=== PATIENT | male | born 1930 | race Caucasian/White ===

== ENCOUNTER 2017-09-29 11:40 | Emergency (ER) | payer MEDICARE, OTHER ==
[~2017-09-29] VITALS: Ht 175.3 cm; Wt 73.0 kg
[~2017-09-29 11:40] MED LIST: COUM2TAB PO; GLUC500C56 PO; HYDR10TA16 PO; IRON18TA PO; PROP40TA27 PO; TAB-TAB PO
[2017-09-29 11:46] VITALS: BP 162/72; PULSE 72; RESP 16; TEMP 98.2; O2SAT 96
[2017-09-29] MEDS ORDERED: SIMV10TA PO (11:54)
[2017-09-29] MEDS ORDERED: HTN MED (11:54)
[2017-09-29] MEDS ORDERED: AMOX500C PO (12:14)
--- NOTE | 2017-09-29 12:15 | PD ---
HPI Chief Complaint: Cold / Flu Symptoms Time Seen by Provider: 11:52 Travel History International Travel<30 days: No Contact w/Intl Traveler<30days: No Traveled to known affect area: No History of Present Illness HPI This 86-year-old male says he been sick for the past week. He's been coughing up thick yellow phlegm. He has not been short of breath. He uses a nebulizer with some response. He does not smoke. He stopped smoking 45 years ago and has not been diagnosed with COPD. He has no history of heart disease. He had a chest x-ray done last Friday and was told it was normal. PFSH Past Medical History Arthritis: Yes Blood Disorders: No Cancer: Yes (hx of skin cancers) High Cholesterol: Yes Endocrine: No Genitourinary: No Hypertension: Yes Immune Disorder: No Neurologic: No Psychiatric: No Reproductive: Yes (hx of prostate problems) Respiratory: No Past Surgical History Abdominal Surgery: Yes (sander inquinal hernia repair) Eye Surgery: Yes (sander cataract sx) Genitourinary Surgery: Yes (turp) Social History Alcohol Use: Yes (daily 1 beer and 2 mixed drinks) Tobacco Use: No Substance Use: No Allergies-Medications (Allergen,Severity, Reaction): Coded Allergies: No Known Allergies (Verified Adverse Reaction, Unknown, 09/29/17) Reported Meds & Prescriptions Reported Meds & Active Scripts Active Reported [Htn Med] Simvastatin 10 Mg Tab Unknown Dose PO DAILY Review of Systems General / Constitutional: No: Fever, Chills Eyes: No: Diploplia, Blurred Vision HENT: No: Headaches Cardiovascular: No: Chest Pain or Discomfort Respiratory: Positive: Cough, No: Shortness of Breath Gastrointestinal: No: Nausea, Vomiting Genitourinary: No: Urgency, Frequency Neurologic: No: Weakness Endocrine: No: Heat Intolerance, Cold Intolerance Hematologic/Lymphatic: No: Easy Bruising Physical Exam Narrative GENERAL: Well-developed male. His younger than his stated age SKIN: Focused skin assessment warm/dry. HEAD: Atraumatic. Normocephalic. EYES: Pupils equal and round. No scleral icterus. No injection or drainage. ENT: No nasal bleeding or discharge. Mucous membranes pink and moist. NECK: Trachea midline. No JVD. CARDIOVASCULAR: Regular rate and rhythm. No murmur appreciated. RESPIRATORY: No accessory muscle use. Clear to auscultation. Occasional rhonchi GASTROINTESTINAL: Abdomen soft, non-tender, nondistended. Hepatic and splenic margins not palpable. MUSCULOSKELETAL: No obvious deformities. No clubbing. No cyanosis. No edema. NEUROLOGICAL: Awake and alert. No obvious cranial nerve deficits. Motor grossly within normal limits. Normal speech. PSYCHIATRIC: Appropriate mood and affect; insight and judgment normal. Data Data Last Documented VS Vital Signs Date Time Temp Pulse Resp B/P (MAP) Pulse Ox O2 Delivery O2 Flow Rate FiO2 09/29/17 11:46 98.2 72 16 162/72 (102) 96 MDM Medical Decision Making Medical Screen Exam Complete: Yes Emergency Medical Condition: Yes Medical Record Reviewed: Yes Differential Diagnosis Differential includes pneumonia, bronchitis Narrative Course Patient had x-ray done last Friday which was negative. He has been symptomatic for week. I will prescribe amoxicillin 500 tid Diagnosis Primary Impression: Acute bronchitis Scripts Amoxicillin (Amoxicillin) 500 Mg Cap 500 MG PO TID for Infection for 7 Days, CAP 0 Refills Prov: Henry Duke MD 09/29/17 Disposition: DISCHARGE HOME Condition: Stable Henry Duke MD Sep 29, 2017 12:15
== END 2017-09-29 12:37 | disposition home or self-care (01) ==
LOC: PHED 11:40
DX: J20.9 Acute bronchitis, unspecified (principal); M19.90 Unspecified osteoarthritis, unspecified site; E78.00 Pure hypercholesterolemia, unspecified; I10 Essential (primary) hypertension; Z87.891 Personal history of nicotine dependence
CPT/HCPCS: 99283

== ENCOUNTER 2017-10-15 11:23 | Emergency (ER) | payer MEDICARE, OTHER ==
[~2017-10-15] VITALS: Ht 175.3 cm; Wt 70.4 kg
[~2017-10-15 11:23] MED LIST changes: +AMOX500C PO; -COUM2TAB PO; -GLUC500C56 PO; +HTN MED; -HYDR10TA16 PO; -IRON18TA PO; -PROP40TA27 PO; +SIMV10TA PO; -TAB-TAB PO
[2017-10-15] MEDS ORDERED: MAGN200T9 PO (11:31)
[2017-10-15] MEDS ORDERED: SIMV40TA PO (11:31)
[2017-10-15] MEDS ORDERED: FLUO-1 PO (11:31)
[2017-10-15] MEDS ORDERED: LISI-519 PO (11:31)
[2017-10-15] MEDS ORDERED: MULTTAB67 PO (11:31)
[2017-10-15] MEDS ORDERED: MONT10TA4 PO (11:31)
[2017-10-15 11:34] VITALS: BP 178/81; PULSE 88; RESP 16; TEMP 99; O2SAT 96
--- NOTE | 2017-10-15 11:41 | PD ---
HPI Chief Complaint: Complaint Time Seen by Provider: 11:27 Travel History International Travel<30 days: No Contact w/Intl Traveler<30days: No Traveled to known affect area: No History of Present Illness HPI This 87-year-old male presents with complaint of blood in his urine. He has been having it for about 3 days. He says that when he urinated about an hour ago he had 3 small clots. He is still able to void. He has not had fever or chills. He does not recall having trouble like this before. About 30 years ago he had a TURP done because of frequency. He says a TURP didn't seem to help anything. He tried to call urologist this morning and was told to come to the emergency department immediately. He is not on any blood thinners PFS Past Medical History Arthritis: Yes Blood Disorders: No Cancer: Yes (hx of skin cancers) High Cholesterol: Yes Endocrine: No Genitourinary: No Hypertension: Yes Immune Disorder: No Neurologic: No Psychiatric: No Reproductive: Yes (hx of prostate problems) Respiratory: No Past Surgical History Abdominal Surgery: Yes (sander inquinal hernia repair) Eye Surgery: Yes (sander cataract sx) Genitourinary Surgery: Yes (turp) Social History Alcohol Use: Yes (daily 1 beer and 2 mixed drinks) Tobacco Use: No Substance Use: No Allergies-Medications (Allergen,Severity, Reaction): Coded Allergies: No Known Allergies (Verified Adverse Reaction, Unknown, 10/15/17) Reported Meds & Prescriptions Reported Meds & Active Scripts Active Reported Prozac (Fluoxetine HCl) 10 Mg Cap 10 Mg PO DAILY Multiple Vitamin 1 Tab 1 Tab PO DAILY Lisinopril 5 Mg Tab 5 Mg PO DAILY Mag-Oxide (Magnesium Oxide) 200 Mg Magnesium Tablet 200 Mg PO DAILY Montelukast (Montelukast Sodium) 10 Mg Tab 10 Mg PO HS Simvastatin 40 Mg Tab 40 Mg PO DAILY Review of Systems Except as stated in HPI: all other systems reviewed are Neg Respiratory: No: Cough, Shortness of Breath Genitourinary: Positive: Hematuria Physical Exam Narrative GENERAL: Well-developed male SKIN: Focused skin assessment warm/dry. HEAD: Atraumatic. Normocephalic. EYES: Pupils equal and round. No scleral icterus. No injection or drainage. ENT: No nasal bleeding or discharge. Mucous membranes pink and moist. NECK: Trachea midline. No JVD. CARDIOVASCULAR: Regular rate and rhythm. No murmur appreciated. RESPIRATORY: No accessory muscle use. Clear to auscultation. Breath sounds equal bilaterally. GASTROINTESTINAL: Abdomen soft, non-tender, nondistended. Hepatic and splenic margins not palpable. MUSCULOSKELETAL: No obvious deformities. No clubbing. No cyanosis. No edema. NEUROLOGICAL: Awake and alert. No obvious cranial nerve deficits. Motor grossly within normal limits. Normal speech. PSYCHIATRIC: Appropriate mood and affect; insight and judgment normal. Data Data Last Documented VS Vital Signs Date Time Temp Pulse Resp B/P (MAP) Pulse Ox O2 Delivery O2 Flow Rate FiO2 10/15/17 11:34 99.0 88 16 178/81 (113) 96 Orders Orders Urinalysis - C+S If Indicated (10/15/17 11:25) Complete Blood Count With Diff (10/15/17 11:28) Basic Metabolic Panel (Bmp) (10/15/17 11:28) Prothrombin Time / Inr (Pt) (10/15/17 11:28) Act Partial Throm Time (Ptt) (10/15/17 11:28) Ct Abd/Pel W/O Iv Contrast (10/15/17 11:46) Urine Culture (10/15/17 11:30) Sulfamet-Trimeth Ds 800-160 Mg (Bactrim (10/16/17 09:00) Sulfamet-Trimeth Ds 800-160 Mg (Bactrim (10/15/17 13:00) Labs Laboratory Tests Test 10/15/17 11:30 10/15/17 11:40 Urine Collection Type CLEAN CATCH Urine Color YELLOW Urine Turbidity SLIGHT Urine pH 5.0 Urine Specific Boaz 1.025 Urine Protein TRACE mg/dL Urine Glucose (UA) NEG mg/dL Urine Ketones 15 mg/dL Urine Occult Blood LARGE Urine Nitrite NEG Urine Bilirubin NEG Urine Leukocyte Esterase TRACE Urine RBC INNUM /hpf Urine WBC 9-14 /hpf Urine Squamous Epithelial Cells 6-8 /hpf Urine Bacteria FEW /hpf Microscopic Urinalysis Comment CULTURE INDICATED Urine Collection Time 11:30 White Blood Count 6.9 TH/MM3 Red Blood Count 4.23 MIL/MM3 Hemoglobin 12.6 GM/DL Hematocrit 37.7 % Mean Corpuscular Volume 89.1 FL Mean Corpuscular Hemoglobin 29.9 PG Mean Corpuscular Hemoglobin Concent 33.6 % Red Cell Distribution Width 12.7 % Platelet Count 406 TH/MM3 Mean Platelet Volume 8.5 FL Neutrophils (%) (Auto) 82.2 % Lymphocytes (%) (Auto) 8.5 % Monocytes (%) (Auto) 7.5 % Eosinophils (%) (Auto) 1.3 % Basophils (%) (Auto) 0.5 % Neutrophils # (Auto) 5.7 TH/MM3 Lymphocytes # (Auto) 0.6 TH/MM3 Monocytes # (Auto) 0.5 TH/MM3 Eosinophils # (Auto) 0.1 TH/MM3 Basophils # (Auto) 0.0 TH/MM3 CBC Comment DIFF FINAL Differential Comment Prothrombin Time 10.7 SEC Prothromb Time International Ratio 1.1 RATIO Activated Partial Thromboplast Time 28.9 SEC Blood Urea Nitrogen 28 MG/DL Creatinine 1.10 MG/DL Random Glucose 101 MG/DL Calcium Level 9.2 MG/DL Sodium Level 139 MEQ/L Potassium Level 5.0 MEQ/L Chloride Level 105 MEQ/L Carbon Dioxide Level 27.3 MEQ/L Anion Gap 7 MEQ/L Estimat Glomerular Filtration Rate 63 ML/MIN [facility] Medical Decision Making Medical Screen Exam Complete: Yes Emergency Medical Condition: Yes Medical Record Reviewed: Yes Differential Diagnosis Differential includes UTI, tumor bladder lesion, kidney lesion Narrative Course Urine shows innumerable red cells and also 9-14 white cells. His hemoglobin is 12 6 with a white count of 6.9. CT scan shows cysts on the kidneys. There is also a proteinaceous or hemorrhagic cyst on the left kidney. Patient will be started on Bactrim. Follow-up with Dr. Callaway Diagnosis Primary Impression: UTI (urinary tract infection) Additional Impression: Renal cyst Scripts Sulfamethoxazole-Trimethoprim (Bactrim DS) 800-160 Mg Tab 1 TAB PO BID for Infection, #28 TAB 0 Refills Prov: Henry Duke MD 10/15/17 Disposition: 01 DISCHARGE HOME Condition: Stable Henry Duke MD Oct 15, 2017 11:41
[2017-10-15 11:57] LABS: AUTOMATED NEUTROPHIL # 5.7 TH/MM3 (1.8-7.7); BASOPHIL % 0.5 % (0.0-2.0); EOSINOPHIL # 0.1 TH/MM3 (0-0.4); EOSINOPHIL % 1.3 % (0.0-4.0); HEMATOCRIT 37.7 % (39.0-51.0); HEMOGLOBIN 12.6 GM/DL (13.0-17.0); LYMPH % 8.5 % (9.0-44.0); LYMPHOCYTE # 0.6 TH/MM3 (1.0-4.8); MEAN CELL VOLUME 89.1 FL (80.0-100.0); MEAN CORPUSCULAR HEMOGLOBIN 29.9 PG (27.0-34.0); MEAN CORPUSCULAR HGB CONC 33.6 % (32.0-36.0); MEAN PLATELET VOLUME 8.5 FL (7.0-11.0); MONO % 7.5 % (0.0-8.0); MONOCYTE # 0.5 TH/MM3 (0-0.9); NEUT % 82.2 % (16.0-70.0); PLATELET COUNT 406 TH/MM3 (150-450); RED BLOOD COUNT 4.23 MIL/MM3 (4.50-5.90); RED CELL DISTRIBUTION WIDTH 12.7 % (11.6-17.2); WHITE BLOOD COUNT 6.9 TH/MM3 (4.0-11.0)
[2017-10-15 12:02] LABS: BILIRUBIN, URINE NEG (NEG); BLOOD, URINE LARGE (NEG); GLUCOSE,URINE NEG (NEG); KETONE, URINE 15 mg/dL (NEG); NITRITE,URINE NEG (NEG); URINE LEUKOCYTE ESTERASE TRACE (NEG)
[2017-10-15 12:08] LABS: URINE COLOR YELLOW (YELLW/STRAW)
[2017-10-15 12:09] LABS: BACTERIA, URINE FEW /hpf; RBC, URINE INNUM /hpf (0-3)
[2017-10-15 12:12] LABS: INTERNATIONAL NORMALIZED RATIO 1.1 RATIO; PROTHROMBIN TIME - PATIENT 10.7 SEC (9.8-11.6)
[2017-10-15 12:13] LABS: CALCIUM 9.2 MG/DL (8.5-10.1)
[2017-10-15 12:14] LABS: BICARBONATE 27.3 MEQ/L (21.0-32.0)
[2017-10-15 12:17] LABS: CREATININE 1.1 MG/DL (0.60-1.30)
--- NOTE | 2017-10-15 12:46 | RADRPT ---
EXAM DATE/TIME: 10/15/2017 12:26 [facility] COMPARISON: No previous studies available for comparison. INDICATIONS : Hematuria x 3 days. ORAL CONTRAST: No oral contrast ingested. RADIATION DOSE: 12.68 CTDIvol (mGy) MEDICAL HISTORY : Hypertension. Renal calculi. SURGICAL HISTORY : Inguinal hernia repair. TURP ENCOUNTER: Initial ACUITY: 3 days PAIN SCALE: 0/10 LOCATION: Abdomen. TECHNIQUE: Volumetric scanning of the abdomen and pelvis was performed. Using automated exposure control and ad justment of the mA and/or kV according to patient size, radiation dose was kept as low as reasonably achievable to obtain optimal diagnostic quality images. DICOM format image data is available electro nically for review and comparison. FINDINGS: On the first image acquired through the lung bases there is an irregular 12 mm by 8mm nodular density incompletely evaluated on this exam. No acute findings in the liver, spleen, adrenals or pancreas. No calcified gallstones. There are bilateral renal cysts which are circumscribed and low attenuation. These are large on the l eft side measuring up to 5.9 cm. On the left side there is also a nonobstructing 2 mm calculus in the lower pole left kidney. There are additional tiny 1 mm calcifications in both kidneys that are nonob structing. No bowel obstruction. No free air or free fluid. No adenopathy. Appendix normal. Pelvis reveals no bladder calculi. Previous left hip replacement. Postoperative TURP in the prostatic bed. In addition to the above finding there is a 1.3 cm circumscribed increased attenuation nodule in the left kidney posteriorly. Primary differential diagnosis is a hemorrhagic or proteinaceous cyst. CONCLUSION: 1. Small bilateral renal calculi, nonobstructing. 2. 13 mm hyperdense lesion posterior left kidney most characteristic of a hemorrhagic or proteinaceou s cyst. This could be followed in the next 6 months. 3. On the first image through the lung bases there is an irregular 12 mm x 8 mm density which is prob ably the inferior aspect of a parenchymal scar. However further evaluation with chest CT is recommend ed. This could be performed as an outpatient. Demario Garland MD on October 15, 2017 at 12:37 Board Certified Radiologist. This report was verified electronically.
[2017-10-15] MEDS ORDERED: SULFAMETHOXAZOLE-TRIMETHOPRIM DS 800-160 MG TAB PO ONE (13:00)
[2017-10-15] MEDS ORDERED: BACT800T5 PO (13:03)
[2017-10-15 13:10] VITALS: BP 158/70; PULSE 88; RESP 16; O2SAT 95
[2017-10-16] MEDS ORDERED: SULFAMETHOXAZOLE-TRIMETHOPRIM DS 800-160 MG TAB PO SCH (09:00)
== END 2017-10-15 13:15 | disposition home or self-care (01) ==
LOC: PHED 11:23
DX: N39.0 Urinary tract infection, site not specified (principal); N28.1 Cyst of kidney, acquired; I10 Essential (primary) hypertension; E78.00 Pure hypercholesterolemia, unspecified; Z85.828 Personal history of other malignant neoplasm of skin
CPT/HCPCS: 74176; 80048; 81001; 85025; 85610; 85730; 87086; 99284